=== PATIENT | female | born 1980 | race Caucasian/White ===

== ENCOUNTER 2023-02-27 08:50 | Day surgery (SDC) | payer BC ==
[2023-02-26 11:29] VITALS: BP 11/79
[~2023-02-27] VITALS: Ht 172.7 cm; Wt 107.5 kg
[2023-02-27 09:11] VITALS: BP 118/70
--- NOTE | 2023-02-27 09:58 | NUR ---
PT AMBULATED TO THE RESTROOM AND BACK. TOLERATED WELL. PT HAS NO REQUESTS AT THIS TIME. CALL LIGHT WITH PT. AT THE BEDSIDE.
--- NOTE | 2023-02-27 10:54 | NUR ---
PT AND PT'S UPDATED ON TIME FOR SURGERY. BOTH PARTIES STATE UNDERSTANDING. NEITHER LIBERTARIAN HAVE ANY REQUESTS AT THIS TIME.
--- NOTE | 2023-02-27 11:46 | NUR ---
DR. MCRAE AT THE BEDSIDE TO TALK WITH THE PT AND PT'S .
--- NOTE | 2023-02-27 12:29 | NUR ---
02/27/23 1229 [place]bella Green 1222-PATIENT ARRIVED TO PACU ON RA RR EVEN. PATIENT REACTIVE TO VERBAL STIMULI DENIES PAIN OR NAUSEA. DOZES BACK TO SLEEP. SR. IVF INFUSING. NO DRAINAGE TO RIGHT DELTOID DRESSING, INCISION TO RIGHT CHEST SMALL SHADOWING. 1228-PATIENT AROUSES ENCOURAGED TO TAKE DEEP BREATHES. REPORTS "I DON'T FEEL ANYTHING" DROWSY. ENCOURAGED TO REST 92% RA RR EVEN
[2023-02-27] MEDS ORDERED: ACETAMINOPHEN500 MG PO (12:35)
[2023-02-27] MEDS ORDERED: OXYCODON-ACETA1 EAC2 PO (12:35)
[2023-02-27] MEDS ORDERED: IBUPROFEN600 MG PO (12:35)
[2023-02-27 13:14] VITALS: BP 117/72
--- NOTE | 2023-02-28 12:58 | OR ---
[facility] [address] [place], [place] [address] Signed DATE OF OPERATION: 02/27/2023 SURGEON: Courtney Mcrae MD PREOPERATIVE DIAGNOSES: 1. Soft tissue mass, right posterior deltoid (deep). 2. Pigmented lesion, right pectoral area (lateral). POSTOPERATIVE DIAGNOSES: 1. Soft tissue mass, right posterior deltoid (deep). 2. Pigmented lesion, right pectoral area (lateral). PROCEDURES: 1. Excision of right posterior deltoid soft tissue mass adjacent to deltoid muscle (subfascial) 5 cm consistent with lipoma. 2. Excision of pigmented skin lesion, right anterolateral pectoral area 2.1 cm excision size. ANESTHESIA: Local with monitored anesthesia care, Madi Iglesias CRNA and local 12.5 mL Marcaine 0.25% with epinephrine. INDICATION: This 42-year-old woman is a patient of PAOLA Menjivar; previously nurse practitioner, [employer] (now ). She is noted to have a soft tissue mass of the right posterior deltoid area that has become increasingly symptomatic and growing. Clinically, it measures about 5 cm. It is rather deep and is not amenable to office excision. In the preoperative area today, she is also noted to have a significantly pigmented irregular and somewhat worrisome mole lesion on the right anterolateral pectoral area. I have recommended excision of the soft tissue mass as well as the skin lesion. The risk of bleeding, infection, cosmetic deformity and other unforeseen complications was reviewed with her and her (Barbara, who is a registered nurse). They understand and wished to proceed. FINDINGS: The posterior deltoid lesion was consistent with a lipoma. It was rather deep and adjacent to the muscle itself but was excised completely. The pigmented lesion was variably pigmented, irregular and completely excised with a clinically negative margin without problem. Electronically Signed By: COURTNEY MCRAE MD 02/28/23 1258 PATIENT NAME: MORIAH SMITH OPERATIVE REPORT DATE OF : 80 REPORT #: [id number] PHYSICIAN: COURTNEY MCRAE MD PCP: DEJAH CLARKE REPORT IS CONFIDENTIAL AND NOT TO BE RELEASED WITHOUT AUTHORIZATION [facility] [address] [place], [place] [address] Signed DESCRIPTION OF PROCEDURE: The patient was brought to the operating room, placed in the lateral position left side down and the arm at the side. Preparation of the shoulder and the anterior pectoral area was undertaken with a chlorhexidine solution and draped sterilely. Ancef antibiotic was given. Sequential compression device stockings were used and heparin subcutaneously administered. The palpable lesion in the right posterior deltoid had been marked preoperatively and was easily identified. Along the line of skin tension, 0.25% Marcaine with epinephrine local anesthetic was injected in a block configuration. An incision was made directly along the skin tension line and dissection carried through the dermis with sharp and ultimately electrocautery dissection. With blunt dissection into the depths of the wound, a lipomatous mass could be identified. It was shelled out essentially, but was adjacent to the deltoid muscle itself. Electrocautery was used for hemostasis. The excised tissue was approximately 5 cm in size. Once hemostasis was assured, the wound was closed with interrupted 2-0 Vicryl in deep subcutaneous layer and running subcuticular 3-0 Vicryl for the skin. Steri-Strips were applied as was an Acticoat dressing. Attention was turned towards the right anterolateral pectoral area. This area was similarly injected with local anesthetic. An elliptical incision was made with a clinically negative margin around the lesion entirely. Full-thickness excision was undertaken. The specimen was passed for pathology. This excision size was measured as 2.1 cm. A running subcuticular 3-0 Vicryl was used to appose those skin layers. Steri-Strips were applied as was a small OpSite. The deltoid incision had been secured with Steri-Strips and an Acticoat already. The patient was returned to a supine position and taken to the recovery room in good condition having suffered no complications. Sponge, needle, and instrument counts were reported as correct x3. MD BOYD Savage/MODL /[id number] Electronically Signed By: COURTNEY MCRAE MD 02/28/23 1258 PATIENT NAME: MORIAH SMITH OPERATIVE REPORT DATE OF : 80 REPORT #: [id number] PHYSICIAN: COURTNEY MCRAE MD PCP: DEJAH CLARKE REPORT IS CONFIDENTIAL AND NOT TO BE RELEASED WITHOUT AUTHORIZATION [address] [address] Signed cc: PAOLA Menjivar Copies: ~ Electronically Signed By: COURTNEY MCRAE MD 02/28/23 1258 PATIENT NAME: MORIAH SMITH OPERATIVE REPORT DATE OF : 80 REPORT #: [id number] PHYSICIAN: COURTNEY MCRAE MD PCP: DEJAH CLARKE REPORT IS CONFIDENTIAL AND NOT TO BE RELEASED WITHOUT AUTHORIZATION
--- NOTE | 2023-03-05 15:20 | PATH ---
[facility] [address] [place], [place] [address] Signed SPECIMEN(S): A RIGHT POSTERIOER DELTOID SPECIMEN(S): B RIGHT ANTERIOR PECTORAL SPECIMEN SOURCE: A. RIGHT POSTERIOER DELTOID B. RIGHT ANTERIOR PECTORAL CLINICAL HISTORY: A. Soft tissue mass, right deltoid posterior. B. Skin lesion 2.1 cm, right pectoral anterior. Excision of mass right deltoid. FINAL PATHOLOGIC DIAGNOSIS: A. Soft tissue, right posterior deltoid, excision: - Mature adipose tissue, consistent with lipoma B. Skin, right anterior pectoral, excision: - Compound nevus with architectural disorder and mild cytologic atypia, excised BRP MICROSCOPIC EXAMINATION: Histologic sections of all submitted blocks are examined by light microscopy. These findings, together with the gross examination, support the pathologic diagnosis. P GROSS DESCRIPTION: A. The specimen, labeled and designated "Barry, Jonathan, " and designated on the requisition "right deltoid," is received in formalin and consists of a 11 gram portion of yellow-ryan adipose tissue that is 4.6 x 3.5 x 2.6 cm. The specimen is partially surfaced by a transparent membranous tissue. The tissue is inked and serially sectioned to reveal a yellow homogeneous cut surface. Farmworker sections are submitted in (A1-A2). B. The specimen, labeled and designated "Barry, M, " and designated on the requisition "right pectoral anterior," is received in formalin and consists of a 1.3 x 0.7 x 0.4 cm unoriented ellipse of skin. The skin surface is pale pink and smooth with a 0.6 x 0.5 cm brown-black ill-defined macule that is 0.1 cm from the closest resection margin. The specimen is inked, sectioned and entirely submitted in (B1). FB (under the direct supervision of a pathologist) PATIENT NAME: MORIAH SMITH PATHOLOGY DATE OF : 80 REPORT #: [id number] PHYSICIAN: DONAVAN FRANK PCP: DEJAH CLARKE REPORT IS CONFIDENTIAL AND NOT TO BE RELEASED WITHOUT AUTHORIZATION [facility] [address] [place], [place] [address] Signed The Gross Description was prepared using a voice recognition system. The report was reviewed for accuracy; however, sound-alike word errors, addition and/or deletions may occur. If there is any question about this report, please contact Client Services. PERFORMING LABORATORY: Technical component was performed by [facility], [address] [place] [address] (CLIA# [id number]). Professional interpretation was performed by [facility] - [facility], [address] [place] [address] (CLIA#: [id number]). Diagnostician: Saleem Love MD Pathologist Electronically Signed 03/05/2023 Copies: ~ PATIENT NAME: MORIAH SMITH PATHOLOGY DATE OF : 80 REPORT #: [id number] PHYSICIAN: DONAVAN FRANK PCP: DEJAH CLARKE REPORT IS CONFIDENTIAL AND NOT TO BE RELEASED WITHOUT AUTHORIZATION
== END 2023-02-27 13:42 | disposition home or self-care (01) ==
LOC: DS 08:50
PROVIDERS: ATTEND Surgery
PROC: 0HB5XZZ Excision of Chest Skin, External Approach (ICD-10-PCS; principal; 2023-02-27 11:00)
PROC: 0JBD0ZZ Excision of Right Upper Arm Subcutaneous Tissue and Fascia, Open Approach (ICD-10-PCS; 2023-02-27 11:00)
DX: R22.31 Localized swelling, mass and lump, right upper limb (principal); D22.5 Melanocytic nevi of trunk; N84.0 Polyp of corpus uteri; E66.9 Obesity, unspecified; Z68.36 Body mass index [BMI] 36.0-36.9, adult; Z98.890 Other specified postprocedural states; Z88.8 Allergy status to other drugs, medicaments and biological substances; Z88.4 Allergy status to anesthetic agent
CPT/HCPCS: 01610; 84703; J0690; J1100; J1644; J1885; J2250; J2405; J2704; J3010; J7121